=== PATIENT | female | born 1950 | race African-American/Black ===

== ENCOUNTER 2023-07-06 12:51 | Emergency (ER) | payer MEDICARE, OTHER | END 2023-07-06 16:51 | disposition home or self-care (01) | LOC: ERS 12:51 | DX: S50.02XA Contusion of left elbow, initial encounter (principal); L76.22 Postprocedural hemorrhage of skin and subcutaneous tissue following other procedure; E11.9 Type 2 diabetes mellitus without complications; I10 Essential (primary) hypertension; W01.0XXA Fall on same level from slipping, tripping and stumbling without subsequent striking against object, initial encounter; Z79.899 Other long term (current) drug therapy ==